=== PATIENT | female | born 1970 | race African-American/Black ===

== ENCOUNTER 2017-05-07 05:55 | Emergency (ER) | payer OTHER | END 2017-05-07 07:48 | disposition home or self-care (01) | LOC: FER 05:55 | DX: M25.552 Pain in left hip (principal); R42 Dizziness and giddiness; I10 Essential (primary) hypertension; F17.210 Nicotine dependence, cigarettes, uncomplicated; Z79.899 Other long term (current) drug therapy | CPT/HCPCS: 72192; J1100; J1885 ==

== ENCOUNTER 2020-12-22 09:12 | Emergency (ER) | payer OTHER ==
[~2020-12-22 09:12] MED LIST: AMLODIPINE BESY10 MG PO; BACLOFEN 10MG T10 MG PO; CYCLOBENZAPRINE10 MG PO; IBUPROFEN800 MG PO; MAG-OXIDE 400M400 MG PO; MEDROL 4MG DOSEP4 MG PO; MOTRIN600 MG PO; NAPROSYN375 MG PO; NORCO 5-325 TA1 EACH PO; NORVASC5 MG PO; PAXIL10 MG PO; PERCOCET 5-3251 EACH PO; POTASSIUM CHLO10 ME1 PO; ROBAXIN500 MG PO
== END 2020-12-22 11:01 | disposition home or self-care (01) ==
LOC: FER 09:12
DX: S93.602A Unspecified sprain of left foot, initial encounter (principal); I10 Essential (primary) hypertension; Z88.8 Allergy status to other drugs, medicaments and biological substances; W00.0XXA Fall on same level due to ice and snow, initial encounter
CPT/HCPCS: 73630

== ENCOUNTER 2021-08-02 01:36 | Emergency (ER) | payer OTHER | END 2021-08-02 05:15 | disposition home or self-care (01) | LOC: FER 01:36 | DX: M25.531 Pain in right wrist (principal); I10 Essential (primary) hypertension; Z88.2 Allergy status to sulfonamides | CPT/HCPCS: 73110 ==

== ENCOUNTER → 2022-07-16 | Day surgery (SDC) | payer OTHER ==
[~2022-07-16] VITALS: Ht 157.5 cm; Wt 86.3 kg
[2022-07-16 10:11] LABS: HCT 45.9 % (37.0-47.0); HGB 15.7 g/dl (12.5-16.0); MCHC 34.2 g/dL (32.0-36.0); MCV 93.7 fL (78.0-100.0); MPV 10.4 fL (6.0-9.5); RBC 4.9 M/uL (4.20-5.40); RDW 12.9 % (11.5-14.0); WBC 6.7 K/uL (4.0-10.5)
[2022-07-16 10:50] LABS: ALBUMIN 3.4 g/dL (3.4-5.0); BILIRUBIN - TOTAL 0.4 mg/dL (0.2-1.0); BUN/CREAT RATIO (CALC) 14.7 RATIO; CREATININE 0.68 mg/dL (0.51-0.95); GLOBULIN (CALCULATION) 4.3 g/dL; POTASSIUM 3.8 mmol/L (3.5-5.1); TOTAL PROTEIN 7.7 g/dL (6.4-8.2)
== END | disposition home or self-care (01) ==
LOC: FAS 09:41
PROVIDERS: Orthopaedic Surgery
DX: G56.01 Carpal tunnel syndrome, right upper limb (principal); I10 Essential (primary) hypertension; F17.210 Nicotine dependence, cigarettes, uncomplicated; Z79.899 Other long term (current) drug therapy
CPT/HCPCS: 36415; 80053; J0690; J1100; J1885; J2250; J2405; J2704; J3010; J7120